=== PATIENT | female | born 1995 | race Caucasian/White ===

== ENCOUNTER 2017-03-20 21:12 | Observation (INO) | payer MEDICAID ==
[~2017-03-20] VITALS: Ht 162.6 cm; Wt 101.2 kg
== END 2017-03-20 22:40 | disposition home or self-care (01) ==
LOC: SPU 21:12
PROVIDERS: ADMIT Obstetrics & Gynecology; ATTEND Obstetrics & Gynecology
DX: O62.9 Abnormality of forces of labor, unspecified (principal); Z3A.37 37 weeks gestation of pregnancy
CPT/HCPCS: 81002; G0378